=== PATIENT | male | born 1965 | race Hispanic/Latino ===

== ENCOUNTER → 2019-03-03 | Outpatient (CLI) | payer OTHER ==
[~2019-03-03] MED LIST: ASPI-555 PO; GUAIFDM PO; LISI10TA7 PO; METF-444 PO
== END | disposition home or self-care (01) ==
LOC: OIH 14:12
PROVIDERS: ATTEND Internal Medicine
DX: M25.562 Pain in left knee (principal)
CPT/HCPCS: 73560

== ENCOUNTER 2019-07-22 10:17 | Inpatient (IN) | payer SELFPAY ==
[~2019-07-22] VITALS: Ht 177.8 cm; Wt 218.0 kg
[~2019-07-22 10:17] MED LIST changes: +CEPH-578 PO; -GUAIFDM PO
[2019-07-22 11:28] LABS: BASOPHILS % (AUTO) 0.4 % (0.0-5.0); EOSINOPHILS % (AUTO) 2.8 % (0.0-8.0); HEMATOCRIT 27.1 % (42-54); LYMPHOCYTES % (AUTO) 19.7 % (21.0-51.0); MEAN CORPUSCULAR HEMOGLOBIN 32.4 pg (27.0-33.0); MEAN CORPUSCULAR HGB CONC 33.4 g/dL (32.0-36.0); MEAN CORPUSCULAR VOLUME 96.8 fL (79-99); MONOCYTES % (AUTO) 7.8 % (3.0-13.0); NEUTROPHILS % (AUTO) 69.3 % (40.0-77.0); NUCLEATED RED BLOOD CELLS 0.1 % (0.0-0.19); PLATELET COUNT (AUTO) 66 K/uL (130-400); RED CELL DISTRIBUTION WIDTH 17.5 % (11.0-15.5); WHITE BLOOD COUNT (AUTO) 6.6 K/uL (4.8-10.8)
[2019-07-22 11:38] LABS: CARBON DIOXIDE 28 mmol/L (21-32); CHLORIDE 106 mmol/L (101-111); GLOMERULAR FILTR. RATE CALC 38 mL/min (>60); GLUCOSE,RANDOM 63 mg/dL (70-105); POTASSIUM 3.5 mmol/L (3.5-5.1); SODIUM SERUM 141 mmol/L (136-145); UREA NITROGEN, BLOOD 23 mg/dL (7-18)
[2019-07-22 11:49] LABS: ALANINE AMINOTRANSFERASE 13 U/L (12-78); ALBUMIN 1.8 g/dL (3.5-5.0); ASPARTATE AMINOTRANSFERASE 51 U/L (10-37); CREATINE KINASE, TOTAL 117 U/L (21-232); MYOGLOBIN 292 ng/mL (10-92); TOTAL PROTEIN, SERUM 8.7 g/dL (6.0-8.3); TROPONIN I < 0.04 ng/mL (0.00-0.06)
[2019-07-22 12:09] LABS: INR 1.61 (0.85-1.15); PARTIAL THROMBOPLASTIN TIME 36.4 SEC (26.3-35.5); PROTHROMBIN TIME 16.7 SEC (9.6-11.6)
[2019-07-22] MEDS ORDERED: SODIUM CHLORIDE 0.9% 1000ML 1,000 ML IV ONE (13:22)
[2019-07-22 14:54] LABS: APPEARANCE,URINE SL CLOUDY (CLEAR); BILIRUBIN,URINE MODERATE (NEGATIVE); COLOR,URINE YELLOW (YELLOW); GLUCOSE, URINE (UA) NEGATIVE (NEGATIVE); KETONES,URINE 5 mg/dL (NEGATIVE); LEUKOCYTE ESTERASE ,URINE TRACE (NEGATIVE); NITRATE,URINE NEGATIVE (NEGATIVE); OCCULT BLOOD,URINE LARGE (NEGATIVE); PH,URINE 5.5 (5.0-8.0); PROTEIN,URINE 30 mg/dL (NEGATIVE); UROBILINOGEN,URINE 0.2 mg/dL (0.2-1.0)
[2019-07-22 15:12] LABS: BACTERIA,URINE Few /HPF (None Seen); SQUAMOUS EPITHELIAL CELL,UR Rare /HPF (0-2)
[2019-07-22] MEDS ORDERED: ZOSYN 3.375GM+NS 50ML 50 ML IV ONE (15:32)
[2019-07-22] MEDS ORDERED: LACTULOSE 20 GM/30 ML UDCUP PO PRN (15:45)
[2019-07-22] MEDS ORDERED: ONDANSETRON HCL 4 MG/2 ML VIAL IV PRN (15:45)
[2019-07-22] MEDS ORDERED: ACETAMINOPHEN 325 MG TAB PO PRN (15:45)
[2019-07-22] MEDS ORDERED: DEXTROSE 50%-WATER 50 ML DISP.SYRIN IV PRN (16:30)
[2019-07-22] MEDS ORDERED: GLUCAGON 1MG KIT 1 MG ML IM PRN (16:30)
[2019-07-22] MEDS ORDERED: PHARMACY COMMUNICATION MISC SCH (20:15)
[2019-07-22 20:30] VITALS: BP 116/57
[2019-07-22] MEDS: INSULIN HUMULIN R 100 UNIT/ML 3ML SQ SCH (21:00)
[2019-07-22] MEDS ORDERED: ZOSYN 3.375GM+NS 50ML 50 ML IV SCH (21:00)
[2019-07-22] MEDS ORDERED: RENAL DOSE IV ONE (21:45)
[2019-07-22] MEDS ORDERED: VANCOMYCIN PROTOCOL PER PHARMACY IV SCH ×2 (21:45→22:00)
[2019-07-22] MEDS ORDERED: COMPOUND IV REFRIGERATED 1 EACH IVSOLN MISC PRN (22:00)
[2019-07-22] MEDS: FAMOTIDINE 20MG TAB 20 MG TAB PO SCH (22:46)
[2019-07-22] MEDS: VANCOMYCIN 2.5 GM in SODIUM CHLORIDE 0.9% 500ML 500 ML IV SCH (22:49)
[2019-07-22 23:10] VITALS: BP 102/54
[2019-07-23 03:19] VITALS: BP 107/51
[2019-07-23 05:55] LABS: BASOPHILS % (AUTO) 0.4 % (0.0-5.0); EOSINOPHILS % (AUTO) 5.5 % (0.0-8.0); HEMATOCRIT 26.2 % (42-54); LYMPHOCYTES % (AUTO) 26.6 % (21.0-51.0); MEAN CORPUSCULAR HEMOGLOBIN 32.2 pg (27.0-33.0); MEAN CORPUSCULAR HGB CONC 33.7 g/dL (32.0-36.0); MEAN CORPUSCULAR VOLUME 95.7 fL (79-99); MONOCYTES % (AUTO) 8.8 % (3.0-13.0); NEUTROPHILS % (AUTO) 58.7 % (40.0-77.0); NUCLEATED RED BLOOD CELLS 0.1 % (0.0-0.19); PLATELET COUNT (AUTO) 71 K/uL (130-400); RED BLOOD CELL COUNT(AUTO) 2.73 MIL/uL (4.50-6.20); RED CELL DISTRIBUTION WIDTH 17.5 % (11.0-15.5); WHITE BLOOD COUNT (AUTO) 6.2 K/uL (4.8-10.8)
[2019-07-23 06:03] LABS: ALBUMIN 1.7 g/dL (3.5-5.0); BILIRUBIN,DIRECT 2.1 mg/dL (0.0-0.3); BILIRUBIN,TOTAL 3.3 mg/dL (0.2-1.0); CREATININE 1.9 mg/dL (0.5-1.5); POTASSIUM 3.7 mmol/L (3.5-5.1); TOTAL PROTEIN, SERUM 8.3 g/dL (6.0-8.3)
[2019-07-23] MEDS: INSULIN HUMULIN R 100 UNIT/ML 3ML SQ SCH ×4 (07:30→20:56)
[2019-07-23 07:48] VITALS: BP 119/48
[2019-07-23] MEDS: ZOSYN 3.375GM+NS 50ML 50 ML IV SCH ×2 (09:26→18:00)
[2019-07-23] MEDS: FAMOTIDINE 20MG TAB 20 MG TAB PO SCH ×2 (09:26→20:56)
[2019-07-23 11:15] VITALS: BP 117/51
--- NOTE | 2019-07-23 15:00 | NUR ---
INITIAL MET W PT AND SPOUSE AT BEDSIDE, PT LIVES W LM WHO WILL PROVIDE TRANSPORT. PT STATES THEY LIVE IN A HOUSE THAT IS ACCESSIBLE AND THAT HE WALKS AROUND USING JUST A CANE. HAS NO DME. PT HAS HAD NO PCP X 3 YEARS. XU STATES [facility] IS NOT TAKING NEW PTS CM EDUCATED SPOUSE RE THE APPLICATION PROCESS. XU HAS NOT SOUGHT OUT ANY [facility]. COMMUNITY RESOURCE PKT GIVEN. SPOUSE STATES VERY SOON PT WILL HAVE DISABILITY AND SSI/MEDICAID. ENCOURAGED TO GET A PROVIDER NOW RATHTER THAN WAIT. PTS HEALTH IS PRECARIOUS Addendum: 07/23/19 at 2012 by ADIEL STEPHENSON RN CM Amended: Links added.
[2019-07-23 15:24] VITALS: BP 97/47
--- NOTE | 2019-07-23 15:32 | NUR ---
RD NOTIFICATION PRIMARY DIAGNOSIS: GENERAL BODY WEAKNESS, UTI. HX: HTN, DM, FATTY LIVER DIEASE, MORBID OBESE, ANEMIA. BMI IS 76.1; CLASSIFIED GRADE III MORBID OBESE. CURRENT DIET: 75GM CCD. LBM: PT HAS NOT HAD ONE SINCE HIS LAST ADMISSION WHICH WAS ON 07/20. MEDS: PEPCID, HUMULIN R. LABS: BUN 25, CRE 1.9, GFR 40, BG 64, ALB 1.7, INR 1.61, PTT 36.4. PO INTAKE 0% AND HAS POOR APPETITE PER PT AND FAMILY MEMBER. PT CAME IN 07/20 FOR SEPSIS, CELLULITIS AND COMMUNITY ACCURIED PNEUMONIA. CELLULITIS LOOKS IMPROVED PER PREVIOUS NOTE. PT HAD A COLONOSCOPY AND HAS NOT BEEN ABLE TO HAVE A BOWEL MOVEMENT SINCE PROCEDURE. RD RECOMMENDS TO CONTINUE CURRENT DIET, OFFER GLUCERNA IF PT DENIES MEALS. RECOMMEND MEDICATION TO IMPROVE CONSTIPATION. RD WILL CONTINUE TO MONITOR AND FOLLOW UP NEEDED. PLEASE NOTIFY RD IF ANY OTHER NUTRITIONAL CONCERNS ARISE. THANK YOU! Addendum: 07/23/19 at [address] JUÁREZ RD RD Amended: Links added.
[2019-07-23] MEDS: SODIUM CHLORIDE 0.9% 1000ML 1,000 ML IV SCH (18:00)
[2019-07-23 19:30] VITALS: BP 131/49
[2019-07-23] MEDS: VANCOMYCIN 2.5 GM in SODIUM CHLORIDE 0.9% 500ML 500 ML IV SCH (21:00)
[2019-07-23 23:28] VITALS: BP 97/41
[2019-07-24] MEDS: ZOSYN 3.375GM+NS 50ML 50 ML IV SCH ×2 (01:43→09:54)
[2019-07-24 03:34] VITALS: BP_SYST 111; BP_SYST 92; BP_DIAS 54; BP_DIAS 74
[2019-07-24 04:58] LABS: BASOPHILS % (AUTO) 0.5 % (0.0-5.0); EOSINOPHILS % (AUTO) 6.4 % (0.0-8.0); HEMATOCRIT 25.1 % (42-54); MEAN CORPUSCULAR HEMOGLOBIN 32.2 pg (27.0-33.0); MEAN CORPUSCULAR HGB CONC 33.5 g/dL (32.0-36.0); MEAN CORPUSCULAR VOLUME 96.1 fL (79-99); MONOCYTES % (AUTO) 9.1 % (3.0-13.0); PLATELET COUNT (AUTO) 65 K/uL (130-400); RED BLOOD CELL COUNT(AUTO) 2.62 MIL/uL (4.50-6.20); RED CELL DISTRIBUTION WIDTH 18.1 % (11.0-15.5); WHITE BLOOD COUNT (AUTO) 6.5 K/uL (4.8-10.8)
[2019-07-24 05:14] LABS: ALBUMIN 1.7 g/dL (3.5-5.0); BILIRUBIN,TOTAL 3.4 mg/dL (0.2-1.0); POTASSIUM 3.7 mmol/L (3.5-5.1); TOTAL PROTEIN, SERUM 8.4 g/dL (6.0-8.3)
[2019-07-24] MEDS: INSULIN HUMULIN R 100 UNIT/ML 3ML SQ SCH ×4 (06:07→21:00)
[2019-07-24] MEDS: SODIUM CHLORIDE 0.9% 1000ML 1,000 ML IV SCH (06:07)
--- NOTE | 2019-07-24 07:35 | NUR ---
NOTE PATIENT VERY ANXIOUS WANTING TO GET OUT OF BED AND I ATTEMPTED TO HELP HIM TO THE EDGE OF THE BED BUT HE ALMOST SLIPPED OFF THE BED ONTO THE FLOOR. HE IS VERY LARGE AND GETS SOB WITH MINIMAL EXERTION AND GENERALLY WEAK AND COULD NOT DO MUCH ON HIS OWN. ASSITED BACK TO BED AND WILL GET P.T. T HELP HIM LATER TODAY.
[2019-07-24 08:01] VITALS: BP 98/55
[2019-07-24] MEDS: FAMOTIDINE 20MG TAB 20 MG TAB PO SCH ×2 (09:54→22:19)
[2019-07-24 11:00] VITALS: BP 92/40
--- NOTE | 2019-07-24 15:00 | NUR ---
NOTE STARTED ON LACTULOSE BECAUSE HIS AMMONIA LEVEL WAS HIGH. HE HAS BEEN SLEEPING A LOT FOR US AND STATES HE HAS BEEN LIKE THIS AT HOME WELL. LAST ADMISSION HE HAD ELEVATED AMMONIA ALSO. HIDA SCAN ORDERED WILL CHECK WITH NUCLEAR MED LATER ABOUT ANY WEIGHT RESTRICTIONS WITH THIS PROCEDURE. CALLED EXT [phone] AND COULD NOT GET THEM ON THE PHONE.
[2019-07-24] MEDS: LACTULOSE 20 GM/30 ML UDCUP PO SCH ×2 (15:58→22:20)
[2019-07-24 16:35] VITALS: BP 101/47
--- NOTE | 2019-07-24 17:00 | NUR ---
NOTE WAS INFORMED THAT PATIENT CANNOT GET HIDA SCAN DONE BECAUSE THERE IS A WEIGHT LIMIT OF 300 POUNDS ON NUCLEAR MED TABLE.
--- NOTE | 2019-07-24 18:15 | NUR ---
NOTE CALLED INTO ROOM FOR PATIENT HAS SMALL AREA TO LEFT THIGH FOLD THAT IS BLEEDING QUITE A BIT BUT STOPS OR SLOWS DOWN ALMOST COMPLETELY WHEN GAUZES OR TOWEL PLACED IN FOLD.
[2019-07-24 19:24] VITALS: BP 122/67
[2019-07-24] MEDS: VANCOMYCIN 2.5 GM in SODIUM CHLORIDE 0.9% 500ML 500 ML IV SCH (22:18)
[2019-07-24 23:39] LABS: SODIUM,URINE RANDOM < 15 mmol/l (40-220)
[2019-07-24 23:41] VITALS: BP 119/96
[2019-07-24 23:46] LABS: APPEARANCE,URINE Cloudy (CLEAR); BILIRUBIN,URINE Small (NEGATIVE); COLOR,URINE Dark Yellow (YELLOW); GLUCOSE, URINE (UA) Negative (NEGATIVE); KETONES,URINE Trace mg/dL (NEGATIVE); LEUKOCYTE ESTERASE ,URINE Moderate (NEGATIVE); NITRATE,URINE Negative (NEGATIVE); OCCULT BLOOD,URINE Large (NEGATIVE); PROTEIN,URINE POS 1+ mg/dL (NEGATIVE)
[2019-07-24 23:55] LABS: BACTERIA,URINE Moderate /HPF (None Seen); MUCUS,URINE Rare LPF (None Seen); RBC,URINE TNTC /HPF (0-1); WBC,URINE 26-50 /HPF (0-1); YEAST,URINE BUDDING Many /HPF (None Seen)
[2019-07-25] MEDS: ZOSYN 3.375GM+NS 50ML 50 ML IV SCH ×3 (01:00→17:09)
[2019-07-25 03:05] VITALS: BP 99/40
[2019-07-25 04:32] LABS: HEMATOCRIT 25.1 % (42-54); MEAN CORPUSCULAR HEMOGLOBIN 32.3 pg (27.0-33.0); MEAN CORPUSCULAR HGB CONC 33.7 g/dL (32.0-36.0); NUCLEATED RED BLOOD CELLS 0.1 % (0.0-0.19); PLATELET COUNT (AUTO) 64 K/uL (130-400); RED BLOOD CELL COUNT(AUTO) 2.62 MIL/uL (4.50-6.20); RED CELL DISTRIBUTION WIDTH 17.9 % (11.0-15.5)
[2019-07-25 04:47] LABS: ALBUMIN 1.8 g/dL (3.5-5.0); BAND NEUTROPHILS % (MANUAL) 6 % (0-2); BILIRUBIN,DIRECT 2.5 mg/dL (0.0-0.3); CREATININE 2.1 mg/dL (0.5-1.5); EOSINOPHILS % (MANUAL) 4 % (1-6); LYMPHOCYTES % (MANUAL) 11 % (22-44); MAGNESIUM 2.8 mg/dL (1.80-2.40); MONOCYTES % (MANUAL) 5 % (2-9); PHOSPHORUS 3.6 mg/dL (2.5-4.9); POTASSIUM 3.8 mmol/L (3.5-5.1); SEGMENTED NEUTROPHILS % 74 % (40-70); THYROID STIMULATING HORMONE 3.2 uIU/mL (0.36-3.74); TOTAL PROTEIN, SERUM 8.4 g/dL (6.0-8.3)
[2019-07-25 04:48] LABS: MAN.DIFF COMMENT-IMPRESSION MANUAL DIFFERENTIAL; PLATELET MORPHOLOGY COMMENT DECREASED
[2019-07-25 04:59] LABS: % IRON SATURATION 25.6 % (30-44)
[2019-07-25] MEDS: INSULIN HUMULIN R 100 UNIT/ML 3ML SQ SCH ×4 (06:32→21:00)
[2019-07-25] MEDS: LACTULOSE 20 GM/30 ML UDCUP PO SCH ×3 (06:32→21:16)
[2019-07-25 08:04] VITALS: BP 102/46
[2019-07-25] MEDS: THIAMINE HCL 100 MG/ML 2ML VIAL IVP SCH (10:21)
[2019-07-25] MEDS: FAMOTIDINE 20MG TAB 20 MG TAB PO SCH ×2 (10:22→21:16)
[2019-07-25] MEDS: FOLIC ACID/VITAMIN B COMP W-C 1 MG CAP/TAB PO SCH (10:22)
[2019-07-25 12:28] VITALS: BP 90/38
--- NOTE | 2019-07-25 13:34 | NUR ---
DR BARRIENTOS ROUNDED ON PATIENT ORDERS FOR BMP AND DISASTER DIRECTOR IN AM
[2019-07-25 18:23] VITALS: BP 113/46
[2019-07-25 19:08] VITALS: BP 99/40
[2019-07-25] MEDS: VANCOMYCIN 2.5 GM in SODIUM CHLORIDE 0.9% 500ML 500 ML IV SCH (21:00)
[2019-07-25 23:17] VITALS: BP 108/42
[2019-07-26] MEDS: ZOSYN 3.375GM+NS 50ML 50 ML IV SCH ×3 (01:17→17:15)
[2019-07-26 04:00] VITALS: BP 100/48
[2019-07-26 05:38] LABS: BASOPHILS % (AUTO) 0.7 % (0.0-5.0); EOSINOPHILS % (AUTO) 5.8 % (0.0-8.0); HEMATOCRIT 25.9 % (42-54); MEAN CORPUSCULAR HEMOGLOBIN 32.7 pg (27.0-33.0); MEAN CORPUSCULAR HGB CONC 33.5 g/dL (32.0-36.0); MEAN CORPUSCULAR VOLUME 97.6 fL (79-99); MONOCYTES % (AUTO) 9.7 % (3.0-13.0); NEUTROPHILS % (AUTO) 63.8 % (40.0-77.0); NUCLEATED RED BLOOD CELLS 0.2 % (0.0-0.19); PLATELET COUNT (AUTO) 50 K/uL (130-400); RED BLOOD CELL COUNT(AUTO) 2.65 MIL/uL (4.50-6.20); RED CELL DISTRIBUTION WIDTH 18.3 % (11.0-15.5); WHITE BLOOD COUNT (AUTO) 8.3 K/uL (4.8-10.8)
[2019-07-26 05:50] LABS: ALBUMIN 1.8 g/dL (3.5-5.0); BILIRUBIN,TOTAL 3.9 mg/dL (0.2-1.0); CREATININE 2.2 mg/dL (0.5-1.5); POTASSIUM 3.8 mmol/L (3.5-5.1); TOTAL PROTEIN, SERUM 8.5 g/dL (6.0-8.3)
[2019-07-26] MEDS: LACTULOSE 20 GM/30 ML UDCUP PO SCH ×3 (07:26→21:20)
[2019-07-26] MEDS: INSULIN HUMULIN R 100 UNIT/ML 3ML SQ SCH ×4 (07:30→21:00)
[2019-07-26 08:51] VITALS: BP 105/58
[2019-07-26] MEDS: FOLIC ACID/VITAMIN B COMP W-C 1 MG CAP/TAB PO SCH (09:27)
[2019-07-26] MEDS: FAMOTIDINE 20MG TAB 20 MG TAB PO SCH ×2 (09:27→21:15)
[2019-07-26] MEDS: THIAMINE HCL 100 MG/ML 2ML VIAL IVP SCH (09:27)
[2019-07-26] MEDS: ACETAMINOPHEN 325 MG TAB PO PRN (09:29)
[2019-07-26 11:50] VITALS: BP 119/70
--- NOTE | 2019-07-26 14:55 | NUR ---
DR BA CONSULTED ON PATIENT REVIEWED PATIENT TEST RESULTS AND HISTORY ORDERS RECEIVED FOR UA TOX SCREEN ABD US IF NOT DONE CALL RESULT TO HIM, MAY HAVE CLEAR LIQUID IF NOT NAUSEATED Addendum: 07/26/19 at 1546 by CRYSTAL KISER RN RN PLACE ON WRONG PATIENT
[2019-07-26 16:25] VITALS: BP 103/51
--- NOTE | 2019-07-26 18:25 | NUR ---
DR BARRIENTOS ROUNDED ON PATIENT ORDERS RECEIVED FOR AM LABS CBC AND BMP IN AM , MIDODRINE 5 MG TID, AND ALBUMIN 25 GRAMS IV EVERY 8 HOURS FOR TOTAL OF 6 DOSES ORDERS PLACED
[2019-07-26 19:20] VITALS: BP 109/47
[2019-07-26] MEDS ORDERED: PHARMACY COMMUNICATION MISC SCH (20:00)
[2019-07-26] MEDS: VANCOMYCIN 2.5 GM in SODIUM CHLORIDE 0.9% 500ML 500 ML IV SCH (21:00)
[2019-07-26] MEDS: MIDODRINE HCL 5 MG TABLET PO SCH (21:15)
[2019-07-26] MEDS: ALBUMIN (HUMAN) 25% 100 ML IV SCH (21:32)
[2019-07-26 23:05] VITALS: BP 95/41
[2019-07-27] MEDS: ZOSYN 3.375GM+NS 50ML 50 ML IV SCH ×3 (01:00→17:43)
[2019-07-27 03:48] VITALS: BP 95/46
[2019-07-27 05:19] LABS: BASOPHILS % (AUTO) 0.4 % (0.0-5.0); EOSINOPHILS % (AUTO) 5.8 % (0.0-8.0); HEMATOCRIT 25.7 % (42-54); LYMPHOCYTES % (AUTO) 19.1 % (21.0-51.0); MEAN CORPUSCULAR HEMOGLOBIN 32.6 pg (27.0-33.0); MEAN CORPUSCULAR HGB CONC 33.7 g/dL (32.0-36.0); MEAN CORPUSCULAR VOLUME 96.6 fL (79-99); NEUTROPHILS % (AUTO) 65.7 % (40.0-77.0); NUCLEATED RED BLOOD CELLS 0.2 % (0.0-0.19); PLATELET COUNT (AUTO) 46 K/uL (130-400); RED BLOOD CELL COUNT(AUTO) 2.66 MIL/uL (4.50-6.20); RED CELL DISTRIBUTION WIDTH 18.7 % (11.0-15.5)
[2019-07-27 05:31] LABS: CREATININE 2.3 mg/dL (0.5-1.5); POTASSIUM 3.8 mmol/L (3.5-5.1)
[2019-07-27] MEDS: LACTULOSE 20 GM/30 ML UDCUP PO SCH ×3 (05:47→22:38)
[2019-07-27] MEDS: ALBUMIN (HUMAN) 25% 100 ML IV SCH ×2 (05:47→20:20)
[2019-07-27] MEDS: INSULIN HUMULIN R 100 UNIT/ML 3ML SQ SCH ×4 (05:49→21:00)
[2019-07-27] MEDS ORDERED: COMPOUND IV REFRIGERATED 1 EACH IVSOLN MISC PRN (06:45)
[2019-07-27 08:23] VITALS: BP 119/61
[2019-07-27] MEDS: FOLIC ACID/VITAMIN B COMP W-C 1 MG CAP/TAB PO SCH (09:00)
[2019-07-27] MEDS ORDERED: VANCOMYCIN 1.25 GM in SODIUM CHLORIDE 0.9% 250 ML IV SCH (11:00)
[2019-07-27] MEDS: THIAMINE HCL 100 MG/ML 2ML VIAL IVP SCH (11:14)
[2019-07-27] MEDS: MIDODRINE HCL 5 MG TABLET PO SCH ×3 (11:14→21:13)
[2019-07-27] MEDS: FAMOTIDINE 20MG TAB 20 MG TAB PO SCH ×2 (11:14→21:13)
[2019-07-27 11:38] VITALS: BP 112/49
[2019-07-27 16:03] VITALS: BP 104/40
[2019-07-27] MEDS ORDERED: LACTULOSE 20 GM/30 ML UDCUP PO SCH (18:15)
[2019-07-27 20:00] VITALS: BP 120/46
[2019-07-27] MEDS: CEPHALEXIN 500 MG CAPSULE PO SCH (21:13)
[2019-07-28] VITALS (7 sets, daily range): BP systolic 94–114; BP diastolic 35–66
[2019-07-28] MEDS: ALBUMIN (HUMAN) 25% 100 ML IV SCH ×4 (00:13→18:06)
[2019-07-28] MEDS: ACETAMINOPHEN 325 MG TAB PO PRN (00:28)
[2019-07-28] MEDS: ZOSYN 3.375GM+NS 50ML 50 ML IV SCH ×3 (01:00→18:06)
[2019-07-28 04:25] LABS: HEMATOCRIT 25.5 % (42-54); MEAN CORPUSCULAR HEMOGLOBIN 32.9 pg (27.0-33.0); MEAN CORPUSCULAR HGB CONC 33.6 g/dL (32.0-36.0); MEAN CORPUSCULAR VOLUME 98.1 fL (79-99); NUCLEATED RED BLOOD CELLS 0.2 % (0.0-0.19); PLATELET COUNT (AUTO) 34 K/uL (130-400); WHITE BLOOD COUNT (AUTO) 8.5 K/uL (4.8-10.8)
[2019-07-28 04:36] LABS: CREATININE 2.5 mg/dL (0.5-1.5); POTASSIUM 3.5 mmol/L (3.5-5.1)
[2019-07-28] MEDS: INSULIN HUMULIN R 100 UNIT/ML 3ML SQ SCH ×4 (06:23→21:00)
[2019-07-28] MEDS: LACTULOSE 20 GM/30 ML UDCUP PO SCH ×3 (06:24→21:02)
[2019-07-28] MEDS: CEPHALEXIN 500 MG CAPSULE PO SCH ×3 (10:20→21:02)
[2019-07-28] MEDS: FOLIC ACID/VITAMIN B COMP W-C 1 MG CAP/TAB PO SCH (10:20)
[2019-07-28] MEDS: MIDODRINE HCL 5 MG TABLET PO SCH ×3 (10:20→21:02)
[2019-07-28] MEDS: FAMOTIDINE 20MG TAB 20 MG TAB PO SCH ×2 (10:20→21:02)
[2019-07-28] MEDS: THIAMINE HCL 100 MG/ML 2ML VIAL IVP SCH (10:20)
--- NOTE | 2019-07-28 14:59 | NUR ---
DYSPHAGIA HIRA CARABALLO. -S/S OF ASPIRATION. COMPENSATORY STRATEGIES TO IMPROVE P.O. HABIT RECOMMENDED. RECOMMEND REGULAR, THIN LIQUIDS; PILLS WHOLE WITH LIQUIDS. Addendum: 07/28/19 at 1500 by CHRIS GARNICA, [facility] Amended: Links added.
--- NOTE | 2019-07-28 18:30 | NUR ---
PT TO ROOM , 314 , FROM 4TH FLOOR. PT IS ON A SPECIAL BED , HOB UP... AND CALL LIGHT IN REACH. FOR FAMILY MEMBERS .
[2019-07-29] MEDS: ZOSYN 3.375GM+NS 50ML 50 ML IV SCH ×2 (00:16→10:03)
[2019-07-29] MEDS: ALBUMIN (HUMAN) 25% 100 ML IV SCH ×3 (00:16→12:37)
[2019-07-29 04:03] VITALS: BP 93/35
[2019-07-29 05:09] LABS: HEMATOCRIT 25.5 % (42-54); MEAN CORPUSCULAR HEMOGLOBIN 32.3 pg (27.0-33.0); MEAN CORPUSCULAR HGB CONC 33.2 g/dL (32.0-36.0); MEAN CORPUSCULAR VOLUME 97.3 fL (79-99); NUCLEATED RED BLOOD CELLS 0.1 % (0.0-0.19); PLATELET COUNT (AUTO) 30 K/uL (130-400); RED BLOOD CELL COUNT(AUTO) 2.63 MIL/uL (4.50-6.20); RED CELL DISTRIBUTION WIDTH 18.3 % (11.0-15.5); WHITE BLOOD COUNT (AUTO) 7.3 K/uL (4.8-10.8)
[2019-07-29 05:20] LABS: CREATININE 3.2 mg/dL (0.5-1.5); POTASSIUM 3.4 mmol/L (3.5-5.1)
[2019-07-29] MEDS: LACTULOSE 20 GM/30 ML UDCUP PO SCH ×3 (05:50→23:10)
[2019-07-29 05:53] LABS: BAND NEUTROPHILS % (MANUAL) 8 % (0-2); BASOPHILS % (MANUAL) 2 % (0-2); EOSINOPHILS % (MANUAL) 4 % (1-6); LYMPHOCYTES % (MANUAL) 22 % (22-44); MAN.DIFF COMMENT-IMPRESSION MANUAL DIFFERENTIAL; MONOCYTES % (MANUAL) 2 % (2-9); PLATELET MORPHOLOGY COMMENT DECREASED; SEGMENTED NEUTROPHILS % 62 % (40-70)
[2019-07-29] MEDS: INSULIN HUMULIN R 100 UNIT/ML 3ML SQ SCH ×4 (05:58→21:00)
--- NOTE | 2019-07-29 06:00 | NUR ---
STATUS Pt awake,sleepy,denies pain or discomfort.Bed bath given,nadya well.Remains on bariatric bed. at bedside.
[2019-07-29 08:29] VITALS: BP 114/51
[2019-07-29] MEDS: FOLIC ACID/VITAMIN B COMP W-C 1 MG CAP/TAB PO SCH (10:02)
[2019-07-29] MEDS: FAMOTIDINE 20MG TAB 20 MG TAB PO SCH ×2 (10:02→23:10)
[2019-07-29] MEDS: MIDODRINE HCL 5 MG TABLET PO SCH ×3 (10:02→23:10)
[2019-07-29] MEDS: THIAMINE HCL 100 MG/ML 2ML VIAL IVP SCH (10:02)
[2019-07-29] MEDS: CEPHALEXIN 500 MG CAPSULE PO SCH ×3 (10:02→23:10)
[2019-07-29 10:46] VITALS: BP 103/48
--- NOTE | 2019-07-29 11:00 | NUR ---
PT NOTE: PATIENT PERFORMED SUPINE ROLLING SIDE-SIDE IN ORDER TO ASSIST NSG STAFF WITH CLEANING PATIENT. PATIENT REQUIRES MAX/MOD ASSISTX3 FOR SAFE BED MOBILITY(ROLLING). DURING BED MOBILITY ACTIVITY GUERRERO NGUYEN AND JOHN DRAFTER ENGINEERING PRESENT. PATIENT PRESENTED WITH SIGNIFICANT FATIGUE AFTER BED MOBILITY (ROLLING SIDE-SIDE). PATIENT WAS ABLE TO ASSIST IN MAINTAINING SIDELING POSITION FOR ADEQUATE CLEANING. PATIENT IS UNSAFE FOR ANY TRANSFERS OOB SECONDARY TO POOR TOLERANCE FOR EXERCISE,SIGNIFICANT TRUNK WEAKNESS AND SWOLLEN SCROTUM. PT ATTEMPTED SITTING PATIENT AT EOB YESTERDAY BUT UNSUCCESSFUL SECONDARY TO PATIENTS LACK OF TRUNK CONTROL AND INABILITY TO ASSUME AN UPRIGHT POSITION WITHOUT SLIDING OFF OF BED. PT TX WILL CONSIST OF BED MOBILITY TRAINING AND STRENGTHENING OF TRUNK AND UE/LE'S TO PROMOTE ABILITY OF PATIENT TO SAFELY PERFORM TRANSFERS OOB OR TO EOB. AT THIS TIME PATIENT IS DEEMED UNSAFE FOR ANY ACTIVE TRANSFERS OOB OR TO EOB WITH INTEREST OF PATIENT/CAREGIVER SAFETY IN MIND. Addendum: 07/29/19 at 1526 by JUVENCIO PEÑA PT Amended: Links added.
--- NOTE | 2019-07-29 11:00 | NUR ---
ADVANCE DIRECTIVE TALK WITH SPOUSE VANI SUPERVISOR SCREEN PRINTING REQUESTING THIS CM AND RN PRESENT WHILE TALKING ABOUT DNR/CODE STATUS VANI STATES THAT PT KIDNEYS & LIVER SHUTTING DOWN - WE'RE TRYING OUR BEST.. ASKED SPOUSE WHAT SHOULD BE DONE IF PT HEART STOPS.SPOUSE STATES EVERYTHING, ADVISED BY CM THAT WE ARE ASKING THIS BECAUSE THE LIKELIHOOD OF SUCCESS WITH A RESUSCITATION EFFORT WILL BE MINIMAL BECAUSE HE HAS SO MANY PROBLEMS. STARTLED, THOUGHT HE WAS IMPROVING. ASSURED THAT ALL THINGS ARE BEING DONE BUT WE ARE JUST TRYING TO KEEP HIM STABLE, REPEATS SHE WANTS EVERYTHING DONE. WILL THINK ABOUT ADVANCE DIRECTIVES CM ADVISED SPOUSE STILL WORKING ON A DC PLAN- ADVISED SPOUSE THAT EVEN IF PT'S MEDICAID WAS ALREADY ACTIVE, CHOICES FOR DISCHARGE ARE VERY LIMITED BECAUSE HE WEIGHS TOO MUCH FOR THE NURSING HOMES AND THEY COULDNT TAKE HIM. Addendum: 07/29/19 at 1838 by ADIEL STEPHENSON RN CM Amended: Links added.
--- NOTE | 2019-07-29 11:17 | NUR ---
FOLLOW UP COMPLETED. Pt TOLERATING CURRENT DIET OF REGULAR, THIN LIQUIDS, PILLS WHOLE. REPORTS THEY ARE PARTICIPATING IN SAFE SWALLOW PRECAUTIONS OF SLOW RATE, SMALL BITES AND SIPS AND SEATED AT 90 DEGREES. NO CONCERNS AT THIS TIME. Addendum: 07/29/19 at 1119 by CHRIS GARNICA, SPT ST Amended: Links added.
[2019-07-29] MEDS ORDERED: LACTULOSE 20 GM/30 ML UDCUP PO SCH (12:00)
[2019-07-29 15:42] VITALS: BP 115/59
--- NOTE | 2019-07-29 15:58 | NUR ---
RD FOLLOW UP Pt with poor appetite at this time as per family. Pt resting at time of visit. Pt to be "treated aggressively for high ammonia levels" as per Pt family member. Pt tolerating Renal Non Dialysis diet with no report of GI distress. LBM 07/28/19. RD will follow up with hopes of improved PO intake. Pt monitored labs: K 3.4, BUN 45, Cr 3.2, GFR 22, Ca 8.2, NH3 126, Alb 1.8, P 3.6. Once NH3 levels improve, Recommend 30mL ProMod TID for protein supplementation and replenishment. RD to continue to monitor. Please notify RD as nutritional concerns arise. Thank you. Addendum: 07/29/19 at [address] JUÁREZ RD RD Amended: Links added.
[2019-07-29 20:00] VITALS: BP 109/55
[2019-07-30] VITALS: BP 114/52
[2019-07-30] MEDS: LACTULOSE 20 GM/30 ML UDCUP PO SCH ×3 (03:56→20:00)
[2019-07-30 04:00] VITALS: BP 121/58
[2019-07-30] MEDS ORDERED: GUAIFENESIN-DM 200/20 MG 10 ML ONE (04:50)
[2019-07-30 05:04] LABS: HEMATOCRIT 25.8 % (42-54); MEAN CORPUSCULAR HEMOGLOBIN 32.7 pg (27.0-33.0); MEAN CORPUSCULAR HGB CONC 33.3 g/dL (32.0-36.0); MEAN CORPUSCULAR VOLUME 98.1 fL (79-99); NUCLEATED RED BLOOD CELLS 0.2 % (0.0-0.19); PLATELET COUNT (AUTO) 22 K/uL (130-400); RED BLOOD CELL COUNT(AUTO) 2.63 MIL/uL (4.50-6.20); RED CELL DISTRIBUTION WIDTH 18.9 % (11.0-15.5); WHITE BLOOD COUNT (AUTO) 7.2 K/uL (4.8-10.8)
[2019-07-30 05:19] LABS: ALBUMIN 2.4 g/dL (3.5-5.0); BILIRUBIN,TOTAL 3.6 mg/dL (0.2-1.0); CREATININE 3.5 mg/dL (0.5-1.5); POTASSIUM 3.3 mmol/L (3.5-5.1); TOTAL PROTEIN, SERUM 8.3 g/dL (6.0-8.3)
[2019-07-30] MEDS: INSULIN HUMULIN R 100 UNIT/ML 3ML SQ SCH ×4 (07:15→21:00)
[2019-07-30 08:24] VITALS: BP 130/64
[2019-07-30] MEDS ORDERED: LACTULOSE 20 GM/30 ML UDCUP PO SCH (09:00)
[2019-07-30] MEDS ORDERED: POTASSIUM CHLORIDE 20 MEQ ERTAB PO SCH (09:00)
[2019-07-30] MEDS: CEPHALEXIN 500 MG CAPSULE PO SCH ×3 (09:34→20:35)
[2019-07-30] MEDS: MIDODRINE HCL 5 MG TABLET PO SCH ×3 (09:34→20:36)
[2019-07-30] MEDS: FOLIC ACID/VITAMIN B COMP W-C 1 MG CAP/TAB PO SCH (09:35)
[2019-07-30] MEDS: FAMOTIDINE 20MG TAB 20 MG TAB PO SCH ×2 (09:35→20:36)
[2019-07-30] MEDS: THIAMINE HCL 100 MG/ML 2ML VIAL IVP SCH (09:35)
[2019-07-30 13:09] VITALS: BP 120/77
[2019-07-30] MEDS ORDERED: PHARMACY COMMUNICATION MISC SCH (16:00)
--- NOTE | 2019-07-30 16:00 | NUR ---
DR QUEEN SPOKE WITH AND FAMILY MEMBERS REGARDING DNR/DNI BUT STILL HAS NOT MADE UP HER MIND REGARDING SUCH RECOMMENDATION.
[2019-07-30 16:52] VITALS: BP 122/58
[2019-07-30] MEDS: FUROSEMIDE 40 MG TABLET PO SCH (17:31)
[2019-07-30] MEDS ORDERED: LACTULOSE 20 GM/30 ML UDCUP PR ONE (17:45)
--- NOTE | 2019-07-30 18:51 | NUR ---
INFORMED REGARDING PATIENT HAVING A PULMONARY CONSULT. PULMONARY CONSULT CALLED IN AND SPOKE WITH ODELL.
[2019-07-30 20:00] VITALS: BP 114/59
[2019-07-30] MEDS: OCTREOTIDE ACETATE 100 MCG/ML AMP SQ SCH (20:36)
[2019-07-30] MEDS: HONEY 1 APPL/ML TUBE TP SCH (20:36)
[2019-07-31] VITALS: BP 98/49
[2019-07-31] MEDS: LACTULOSE 20 GM/30 ML UDCUP PO SCH (01:52)
[2019-07-31] MEDS: FUROSEMIDE 40 MG TABLET PO SCH ×2 (03:47→15:26)
[2019-07-31 04:00] VITALS: BP 98/49
[2019-07-31 05:26] LABS: HEMATOCRIT 26.4 % (42-54); MEAN CORPUSCULAR HEMOGLOBIN 32.2 pg (27.0-33.0); MEAN CORPUSCULAR HGB CONC 32.7 g/dL (32.0-36.0); MEAN CORPUSCULAR VOLUME 98.6 fL (79-99); NUCLEATED RED BLOOD CELLS 0.2 % (0.0-0.19); PLATELET COUNT (AUTO) 23 K/uL (130-400); RED BLOOD CELL COUNT(AUTO) 2.68 MIL/uL (4.50-6.20); RED CELL DISTRIBUTION WIDTH 20.2 % (11.0-15.5); WHITE BLOOD COUNT (AUTO) 7.9 K/uL (4.8-10.8)
[2019-07-31 05:37] LABS: POTASSIUM 3.6 mmol/L (3.5-5.1)
--- NOTE | 2019-07-31 06:03 | NUR ---
Critical lab Paged technology integration specialist hospitalist to inform them of critical ammonia level of 122, pending physician callback.
[2019-07-31] MEDS: INSULIN HUMULIN R 100 UNIT/ML 3ML SQ SCH ×4 (06:53→21:00)
[2019-07-31 08:00] VITALS: BP 107/54
[2019-07-31] MEDS ORDERED: PHARMACY COMMUNICATION MISC SCH (08:30)
[2019-07-31] MEDS: LACTULOSE 200 GM PO SCH ×6 (08:45→23:47)
[2019-07-31] MEDS: WATER FOR INJECTION STERILE PO SCH ×6 (08:45→23:47)
[2019-07-31] MEDS: THIAMINE HCL 100 MG/ML 2ML VIAL IVP SCH (09:19)
[2019-07-31] MEDS: MIDODRINE HCL 5 MG TABLET PO SCH ×3 (09:21→20:29)
[2019-07-31] MEDS: FAMOTIDINE 20MG TAB 20 MG TAB PO SCH ×2 (09:21→20:29)
[2019-07-31] MEDS: CEPHALEXIN 500 MG CAPSULE PO SCH ×3 (09:21→20:29)
[2019-07-31] MEDS: OCTREOTIDE ACETATE 100 MCG/ML AMP SQ SCH ×3 (09:21→20:36)
[2019-07-31] MEDS: FOLIC ACID/VITAMIN B COMP W-C 1 MG CAP/TAB PO SCH (09:21)
[2019-07-31 12:00] VITALS: BP 100/54
[2019-07-31] MEDS: HONEY 1 APPL/ML TUBE TP SCH (12:00)
[2019-07-31] MEDS ORDERED: LACTULOSE 20 GM/30 ML UDCUP PR SCH (14:00)
--- NOTE | 2019-07-31 15:24 | NUR ---
CALL FROM [employer] MARIAN HARRINGTON #[phone] - CALLING TO ASK PROGNOSIS- PT'S FAMILY MEMBER - BROTHER - IS ATTEMPTING TO MOBILIZING FUNDS FROM A BENEFIT FUND TO ASSIST WITH COSTS-
[2019-07-31 16:00] VITALS: BP 94/40
--- NOTE | 2019-07-31 16:00 | NUR ---
per of patient , does not want ngt at this time
[2019-07-31] MEDS: RIFAXIMIN 550 MG TABLET NG SCH ×2 (17:02→20:29)
[2019-07-31 20:00] VITALS: BP 102/49
[2019-07-31] MEDS ORDERED: EPOETIN ALFA 10,000 UNIT/ML VIAL SQ ONE (21:00)
[2019-07-31] MEDS ORDERED: RIFAXIMIN 550 MG TABLET NG SCH (21:00)
[2019-08-01] VITALS (16 sets, daily range): BP systolic 69–103; BP diastolic 30–61
[2019-08-01] MEDS: WATER FOR INJECTION STERILE PO SCH ×8 (04:43→19:54)
[2019-08-01] MEDS: LACTULOSE 200 GM PO SCH ×8 (04:43→19:54)
[2019-08-01 05:20] LABS: HEMATOCRIT 26.6 % (42-54); MEAN CORPUSCULAR HGB CONC 33.1 g/dL (32.0-36.0); MEAN CORPUSCULAR VOLUME 99.5 fL (79-99); NUCLEATED RED BLOOD CELLS 0.1 % (0.0-0.19); PLATELET COUNT (AUTO) 17 K/uL (130-400); RED BLOOD CELL COUNT(AUTO) 2.67 MIL/uL (4.50-6.20); RED CELL DISTRIBUTION WIDTH 19.7 % (11.0-15.5); WHITE BLOOD COUNT (AUTO) 9.8 K/uL (4.8-10.8)
[2019-08-01 05:28] LABS: CREATININE 4.6 mg/dL (0.5-1.5); POTASSIUM 3.7 mmol/L (3.5-5.1)
--- NOTE | 2019-08-01 05:54 | NUR ---
Critical lab Informed stone setter apprentice hospitalist Carmita SECURITY CONSULTANT that patient had ammonia level of 144, she stated to continue with the lactulose enemas every 6.
[2019-08-01] MEDS: INSULIN HUMULIN R 100 UNIT/ML 3ML SQ SCH ×4 (06:14→21:00)
[2019-08-01] MEDS: MIDODRINE HCL 5 MG TABLET PO SCH ×3 (08:20→20:03)
[2019-08-01] MEDS: FAMOTIDINE 20MG TAB 20 MG TAB PO SCH ×2 (08:20→20:03)
[2019-08-01] MEDS: RIFAXIMIN 550 MG TABLET NG SCH ×2 (08:20→20:03)
[2019-08-01] MEDS: OCTREOTIDE ACETATE 100 MCG/ML AMP SQ SCH ×3 (08:20→20:03)
[2019-08-01] MEDS: FOLIC ACID/VITAMIN B COMP W-C 1 MG CAP/TAB PO SCH (08:20)
[2019-08-01] MEDS: THIAMINE HCL 100 MG/ML 2ML VIAL IVP SCH (08:20)
[2019-08-01] MEDS: CEPHALEXIN 500 MG CAPSULE PO SCH ×3 (08:20→20:03)
--- NOTE | 2019-08-01 10:30 | NUR ---
ABIGAIL Adler for [employer] in room for daily rounds with pt. He led an in depth discussion with pt's and extended family regarding pt's dx, poor prognosis, and recommendations, as well as DNR status vs comfort/hospice care. All questions addressed.
[2019-08-01] MEDS: HONEY 1 APPL/ML TUBE TP SCH (10:33)
[2019-08-01] MEDS ORDERED: NOREPINEPHRINE 4MG/NS 250ML 250 ML IV SCH (15:00)
--- NOTE | 2019-08-01 15:30 | NUR ---
DR MASON SPOKE TO FAMILY- CONFIRMED DNR STATUS . HE ALSO TOLD THEM OF POOR PROGNOSIS AND HIGH LIKELIHOOD THAT PT WILL NOT SURVIVE THIS ADMISSION. THEY ARE AWARE. ALSO CONFIRMED WITH FAMILY THAT NO AGGRESSIVE INTERVENTIONS WILL BE PURSUED.THEY ARE JUST WAITING FOR ONE OF PT'S NINE BROTHERS TO ARRIVE BEFORE IMPLEMENTING COMFORT MEASURES ONLY
--- NOTE | 2019-08-01 16:10 | NUR ---
ATTEMPTED TO START A SECONDARY IV - UNSUCCESSFUL.
--- NOTE | 2019-08-01 19:31 | NUR ---
HAND OFF REPORT GIVEN TO SINAN SÁNCHEZ
[2019-08-02] VITALS (14 sets, daily range): BP systolic 82–110; BP diastolic 30–64
[2019-08-02] MEDS: LACTULOSE 200 GM PO SCH ×6 (02:45→08:36)
[2019-08-02] MEDS: WATER FOR INJECTION STERILE PO SCH ×6 (02:45→08:36)
[2019-08-02 04:02] LABS: MEAN CORPUSCULAR HEMOGLOBIN 32.3 pg (27.0-33.0); MEAN CORPUSCULAR HGB CONC 32.7 g/dL (32.0-36.0); MEAN CORPUSCULAR VOLUME 98.7 fL (79-99); NUCLEATED RED BLOOD CELLS 0.4 % (0.0-0.19); PLATELET COUNT (AUTO) 23 K/uL (130-400); RED BLOOD CELL COUNT(AUTO) 2.64 MIL/uL (4.50-6.20)
[2019-08-02 04:11] LABS: INR 2.26 (0.85-1.15); PARTIAL THROMBOPLASTIN TIME 57.1 SEC (26.3-35.5); PROTHROMBIN TIME 23.4 SEC (9.6-11.6)
[2019-08-02 04:17] LABS: BAND NEUTROPHILS % (MANUAL) 26 % (0-2); EOSINOPHILS % (MANUAL) 4 % (1-6); LYMPHOCYTES % (MANUAL) 11 % (22-44); MONOCYTES % (MANUAL) 7 % (2-9); SEGMENTED NEUTROPHILS % 52 % (40-70)
[2019-08-02 04:18] LABS: MAN.DIFF COMMENT-IMPRESSION MANUAL DIFFERENTIAL; PLATELET MORPHOLOGY COMMENT MARKED DECREASE
[2019-08-02 04:20] LABS: ALBUMIN 2.4 g/dL (3.5-5.0); BILIRUBIN,TOTAL 4.6 mg/dL (0.2-1.0); CREATININE 5.2 mg/dL (0.5-1.5); POTASSIUM 3.8 mmol/L (3.5-5.1); TOTAL PROTEIN, SERUM 7.9 g/dL (6.0-8.3)
[2019-08-02] MEDS: INSULIN HUMULIN R 100 UNIT/ML 3ML SQ SCH (06:16)
[2019-08-02] MEDS ORDERED: PHARMACY COMMUNICATION MISC SCH (06:30)
[2019-08-02] MEDS ORDERED: NOREPINEPHRINE BITARTRATE 4 MG in DEXTROSE 5%-WATER 250 ML IV SCH (06:45)
--- NOTE | 2019-08-02 07:39 | NUR ---
PT AT BEDSIDE-EXPRESSES WISH TO CONVERT TO COMFORT MEASURES ONLY. ONLY WANTS US TO WAIT UNTIL SHE SPEAKS TO CHILDREN TODAY
[2019-08-02] MEDS: FAMOTIDINE 20MG TAB 20 MG TAB PO SCH (09:00)
[2019-08-02] MEDS: CEPHALEXIN 500 MG CAPSULE PO SCH (09:00)
[2019-08-02] MEDS: MIDODRINE HCL 5 MG TABLET PO SCH (09:00)
[2019-08-02] MEDS: FOLIC ACID/VITAMIN B COMP W-C 1 MG CAP/TAB PO SCH (09:00)
[2019-08-02] MEDS: RIFAXIMIN 550 MG TABLET NG SCH (09:00)
[2019-08-02] MEDS: THIAMINE HCL 100 MG/ML 2ML VIAL IVP SCH (10:00)
[2019-08-02] MEDS: OCTREOTIDE ACETATE 100 MCG/ML AMP SQ SCH (10:00)
[2019-08-02] MEDS: HONEY 1 APPL/ML TUBE TP SCH (10:01)
--- NOTE | 2019-08-02 10:28 | NUR ---
NO ACUTE CHANGES. PT SKIN IS SEEPING AND HE IS MOUTH BREATHING UNABLE TO OBTAIN A ACCURATE TEMP. SKIN IS WARM TO TOUCH AND PT IS COVERED WITH SHEETS. LINENS CHANGED
--- NOTE | 2019-08-02 11:10 | NUR ---
SIGNS WITHDRAWAL OF LIFE SUPPORT MEASURE FORM
[2019-08-02] MEDS ORDERED: LORAZEPAM 2 MG/ML 1 ML VIAL IVP PRN (11:30)
[2019-08-02] MEDS ORDERED: HYDROMORPHONE HCL 0.5 MG/0.5 ML ML IVP PRN (11:30)
[2019-08-02] MEDS ORDERED: DiphenhydrAMINE HCL 50 MG/ML VIAL IV PRN (11:45)
--- NOTE | 2019-08-02 13:00 | NUR ---
SUMMARY- PT AND CHILDREN HAVE DECIDED TO PERFORM COMFORT MEASURES ONLY.DR MASON AND DR ARRIOLA SPOKE TO THEM AND AGREED. LEVOPHED HAS BEEN STOPPED. PT HAS BEEN GIVEN DILAUDID ORDERED. RECTAL TUBE AND CUBA TO REMAIN IN PLACE FOR SKIN PROTECTION AND COMFORT
--- NOTE | 2019-08-02 13:38 | NUR ---
HAND OFF REPORT GIVEN TO MEGHA SÁNCHEZ
--- NOTE | 2019-08-02 20:07 | NUR ---
PHYSICIAN PAGED ALESHIA DUNN, VETERANS SERVICE OFFICER NOTIFIED OF FAMILY'S REQUEST TO HAVE PATIENT'S SECRETIONS RESOLVED. VETERANS SERVICE OFFICER ORDERED RT TO DO DEEP SUCTIONING. WILL PLACE CPO[facility] IN [facility].
[2019-08-02] MEDS ORDERED: SCOPOLAMINE HYDROBROMIDE 1 EACH ADH..PATCH TD SCH (20:15)
--- NOTE | 2019-08-02 21:10 | NUR ---
PT NOTE PT IN BED WITH NOTED RESTLESSNESS- MOVING ARMS AND FREQUENT GRUNTING. CUBA CATHETER AND RECTAL TUBE REMAIN IN PLACE. NC 2 L O2 ON. LYMPHEDEMA OBSERVED THROUGHOUT THE BODY. REQUESTING A PAIN MEDICATION TO HELP KEEP PATIENT COMFORTABLE. PATIENT ON COMFORT MEASURES, WILL CONTINUE TO MONITOR TO PROVIDE CARE NEEDED.
[2019-08-02] MEDS: HYDROMORPHONE 1 MG/1 ML AMP IVP PRN (22:05)
[2019-08-03] MEDS: HYDROMORPHONE 1 MG/1 ML AMP IVP PRN (06:50)
[2019-08-03 07:00] VITALS: BP 68/32
--- NOTE | 2019-08-03 07:50 | NUR ---
RECEIVED IN BED WITH EYES CLOSED, NON-RESPONSIVE BUT SEEMS COMFORTABLE AT THIS TIME. IS PRESENT AT THE BEDSIDE SMILING, SHE EXPRESSED THAT SHE FEELS BETTER TO SEE HIM COMFORTABLE. WILL CONTINUE TO MONITOR HIS NEEDS FOR PAIN MEDICATION. PLAN OF CARE DISCUSSED WITH WHO VERBALIZED UNDERSTANDING.
[2019-08-03] MEDS: HONEY 1 APPL/ML TUBE TP SCH (10:00)
--- NOTE | 2019-08-03 11:06 | NUR ---
CANCEL ORDER. Pt CURRENTLY ON COMFORT MEASURES PER NURSE AQUINO. Pt IS NOT RESPONSIVE AT THIS TIME. ORDER CANCELLED. GROUND OPERATIONS SUPERINTENDENT COORDINATED WITH NURSE AQUINO. Addendum: 08/03/19 at 1107 by CHRIS GARNICA, [facility] Amended: Links added.
--- NOTE | 2019-08-03 12:18 | NUR ---
RESTING WITH EYES CLOSED AND SEEMS COMFORTABLE. RESPIRATIONS ARE DEEP AND REGULAR, MOUTH BREATHING OBSERVED. FAMILY IS AT THE BEDSIDE.
--- NOTE | 2019-08-03 13:11 | NUR ---
HOSPICE Pt does not qualify for inpt hospice because he is self pay. Pt does not qualify for placement in a hospice home because of their weight limit. SW looking into [facility] and if bariatric DMe available thru hospice. CMD aware
--- NOTE | 2019-08-03 14:49 | NUR ---
[facility] Sw spoke to Cindy at [place]. There is few bariatric hospital beds thru hospice DME but they have to be available. [facility] [phone] fax [phone] in [place] is accepting shayan pts. They are requesting pt info to review if they are able to meet pt's needs. SW spoke to and explained need to try and find a shayan bed with hospice incase pt "lingers". voiced understanding and is agreeable to referrals being made
--- NOTE | 2019-08-03 15:44 | NUR ---
RD Follow Up Pt with Hospice/Comfort Measures in place. Current Puree Diet. Pt with decreased appetite and 0% PO intake X5 days. Pt noted lab values: Hgb 8.5, Hct 26.0, BUN 52, Cr 5.2, GFR 12, Glu 62, T. Bili 4.6, AST 42, NH3 123, Alb 2.4. Noted Generalized 3+ pitting edema. Leg, Perineum macerations. Comfort measures in place. Please notify RD as nutrition concerns arise. Thank you. Addendum: 08/03/19 at [address] JUÁREZ RD RD Amended: Links added.
--- NOTE | 2019-08-03 16:01 | NUR ---
[facility] ACCEPTED Sw spoke to Kaylie at [facility]. They will accept pt and need to make arrangements with DME to secure bariatric hospital bed. Possible dc tomorrow. Per Dr Morley, pt may not survive the night.
--- NOTE | 2019-08-03 17:10 | NUR ---
SUPINE POSITION WITH HIS EYES CLOSED, MOUTH BREATHING SURROUNDED BY FAMILY. SEEMS COMFORTABLE AT THE MOMENT. SAID THAT SHE DOESN'T NEED ANYTHING AT THIS TIME. WILL CONTINUE TO MONITOR. PER LIFT MANAGER PT GOT ACCEPTED AT [facility]. POSSIBLE D/C TOMORROW.
--- NOTE | 2019-08-03 18:03 | NUR ---
COMPLETE BED BATH WAS PROVIDED TO THE PATIENT WITH LINEN CHANGE. ZINC PROTECTIVE CREAM WAS APPLIED TO THE SKIN FOLDS AND SCROTUM. SCATTERED EMACIATION NOTED WITH SKIN WEEPING. SHEETS APPLIED TO THE FOLDS TO ABSORBS MOISTURE.
[2019-08-03 19:20] VITALS: BP 62/26
--- NOTE | 2019-08-03 21:30 | NUR ---
ASSESS SHIFT ASSESSMENT DONE, PLEASE REFER TO CHART. PT IS GASPING FOR BREATH. KEPT ON O2 FOR COMFORT. NO OTHER S/SX OF DISTRESS NOTED. PT'S FAMILY IN ROOM AND ASSURED THEM THAT STAFF WILL BE HERE FOR ANYTHING NEEDED. Addendum: 08/03/19 at 2309 by ABHILASH TRENT RN RN Amended: Links added.
--- NOTE | 2019-08-03 22:40 | NUR ---
RESOURCE PT'S FAMILY CALLS STAFF PT IS ALREADY HAVING AGONAL BREATHS. TRIED TO COMFORT FAMILY. RESOURCE NURSE MADE AWARE.
--- NOTE | 2019-08-03 23:21 | NUR ---
RESOURCE PT'S FAMILY CALLS PLISSE MACHINE OPERATOR HELPER AND INFORMS THAT PT HAD ALREADY STOPPED BREATHING. RESOURCE NURSE ALREADY ON THE FLOOR AND DECLARED TIME OF AT 2321. FAMILY ALLOWED TO STAY WITH PT AT THIS TIME. FAMILY STATES THAT DAUGHTER IS STILL COMING TO SEE PT.
--- NOTE | 2019-08-03 23:35 | NUR ---
[facility]ENT STARTED FILLING UP DOCUMENTATION OF WITH THE HELP OF RESOURCE NURSE. CALLED TRENT AND SPOKE WITH FRANCIA. CIGAR WRAPPER WAS INFORMED THAT PT IS DECLINED FOR ORGAN DONATION BUT EYE BANK WILL CALL CIGAR WRAPPER BACK.
--- NOTE | 2019-08-04 00:27 | NUR ---
WOOD SWENSON FROM THE EYE BANK CALLED AND INFORMED LEARNING SUPPORT RESOURCE ROOM TEACHER ABOUT PT BEING A CANDIDATE FOR [employer] DONATION AND SHE WILL TALK TO THE . STATED SHE WILL CALL BACK IF PT'S SPOUSE WILL AGREE TO THE DONATION.
--- NOTE | 2019-08-04 01:00 | NUR ---
POST ALL FAMILY THAT ARE BEING WAITED ON TO SEE PT IS ALREADY IN AND SEEN PT. PCP FIXED PT TO BE TRANSPORTED TO THE [facility]. SECURITY CALLED FOR GURNEY AND PT'S BODY TRANSFERRED TO THE [facility].
== END 2019-08-03 23:21 | disposition expired | DRG 871 ==
LOC: EDH 10:17 → EDHIP 10:18 → 4CH 19:54 → 3CH 07-28 19:58 → 2BH 08-01 13:26 → 3AH 08-02 14:09
PROVIDERS: ADMIT Family Medicine; ATTEND Family Medicine
DX: A41.9 Sepsis, unspecified organism (principal); N17.0 Acute kidney failure with tubular necrosis; E43 Unspecified severe protein-calorie malnutrition; G93.41 Metabolic encephalopathy; J96.02 Acute respiratory failure with hypercapnia; K76.7 Hepatorenal syndrome; L03.115 Cellulitis of right lower limb; N39.0 Urinary tract infection, site not specified; L03.116 Cellulitis of left lower limb; Z68.45 Body mass index [BMI] 70 or greater, adult; R18.8 Other ascites; N18.9 Chronic kidney disease, unspecified; E11.22 Type 2 diabetes mellitus with diabetic chronic kidney disease; Z66 Do not resuscitate; I13.10 Hypertensive heart and chronic kidney disease without heart failure, with stage 1 through stage 4 chronic kidney disease, or unspecified chronic kidney disease; B96.89 Other specified bacterial agents as the cause of diseases classified elsewhere; D63.1 Anemia in chronic kidney disease; K72.90 Hepatic failure, unspecified without coma; D69.6 Thrombocytopenia, unspecified; E11.21 Type 2 diabetes mellitus with diabetic nephropathy; E11.621 Type 2 diabetes mellitus with foot ulcer; E66.01 Morbid (severe) obesity due to excess calories; E78.5 Hyperlipidemia, unspecified; I89.0 Lymphedema, not elsewhere classified; K76.0 Fatty (change of) liver, not elsewhere classified; Z51.5 Encounter for palliative care; G47.33 Obstructive sleep apnea (adult) (pediatric); K74.60 Unspecified cirrhosis of liver; L97.509 Non-pressure chronic ulcer of other part of unspecified foot with unspecified severity; W19.XXXA Unspecified fall, initial encounter; Y93.89 Activity, other specified; Y92.89 Other specified places as the place of occurrence of the external cause; Y99.8 Other external cause status; Z74.01 Bed confinement status; Z87.891 Personal history of nicotine dependence; Z87.440 Personal history of urinary (tract) infections; Z87.01 Personal history of pneumonia (recurrent); Z80.49 Family history of malignant neoplasm of other genital organs; Z80.3 Family history of malignant neoplasm of breast; Z82.0 Family history of epilepsy and other diseases of the nervous system; Z83.3 Family history of diabetes mellitus; Z82.49 Family history of ischemic heart disease and other diseases of the circulatory system
CPT/HCPCS: 36415; 71045; 71250; 80048; 80053; 80076; 80202; 81001; 82140; 82248; 82550; 82728; 82948; 83540; 83550; 83605; 83735; 83874; 83935; 84100; 84300; 84443; 84484; 84550; 85025; 85027; 85060; 85610; 85730; 87040; 87077; 87088; 87186; 92610; 93005; 97039; G0378; J0885; J1170; J2354; J2405; J2543; J3370; J3411; J3490; J7030; J7040; J7060; P9046